=== PATIENT | male | born 1990 | race Caucasian/White ===

== ENCOUNTER 2019-05-23 13:33 | Emergency (ER) | payer SELFPAY ==
[~2019-05-23] VITALS: Ht 172.7 cm; Wt 80.0 kg
[2019-05-23 13:44] VITALS: BP 122/83
[2019-05-23] MEDS ORDERED: dexamethasone sod phosphate 10mg/ml inj IM STA (14:22)
[2019-05-23] MEDS ORDERED: hydrOXYzine 25 MG tablet PO ONE (14:25)
== END 2019-05-23 15:03 | disposition home or self-care (01) ==
LOC: ER 13:33
DX: L50.9 Urticaria, unspecified (principal)
CPT/HCPCS: 96372; 99283; J1100; Z7610